=== PATIENT | female | born 1985 | race Asian ===

== ENCOUNTER 2024-06-13 21:29 | Emergency (ER) | payer BC, OTHER ==
[2024-06-13 22:07] LABS: Bilirubin Negative (Negative); Blood, Urine Trace (Negative); Clarity Hazy (Clear); Glucose, Urine (Dipstick) Negative (Negative); Ketone, Urine 40 mg/dL (Negative); Leukocyte Trace (Negative); Nitrite Negative (Negative); Protein, Urine (Dipstick) Negative (Neg-Trace); Specific Gravity, Urine 1.025 (1.005-1.030); Urobilinogen 0.2 mg/dL (Less than 2)
[2024-06-13 22:10] LABS: Bacteria/HPF 1+ HPF (None Seen); CAUTI Indications for Culture Pelvic or flank pain; RBC/HPF 0-3 HPF (0-3); WBC/HPF 0-3 HPF (0-3)
[2024-06-13 22:11] LABS: Urine Culture Reflex No No
== END 2024-06-13 22:22 | disposition home or self-care (01) ==
LOC: ERS 21:29
DX: N39.0 Urinary tract infection, site not specified (principal); R32 Unspecified urinary incontinence
CPT/HCPCS: 81001; 87086; 99283

== ENCOUNTER 2024-06-16 12:45 | Outpatient (CLI) | payer OTHER | END 2024-06-16 12:46 | disposition home or self-care (01) | LOC: BICULT 12:45 | PROVIDERS: ATTEND Nurse Practitioner Family | DX: N30.00 Acute cystitis without hematuria (principal); N39.490 Overflow incontinence | CPT/HCPCS: 76770 ==